=== PATIENT | female | born 1955 | race Caucasian/White ===

== ENCOUNTER 2017-06-27 22:03 | Emergency (ER) | payer OTHER ==
[~2017-06-27] VITALS: Ht 175.3 cm; Wt 101.2 kg
[2017-06-27 22:06] VITALS: TEMP 36.9; Ht 175.3 cm; Wt 101.2 kg
[2017-06-27] MEDS ORDERED: ONDANSETRON INJ 2 MG/ML 2 ML VIAL IV STA (22:34)
[2017-06-27] MEDS ORDERED: SODIUM CHLORIDE 0.9% 1000ML 1,000 ML, SODIUM CHLORIDE 0.9% 1000ML 1,000 ML IV ONE (22:45)
[2017-06-27] MEDS ORDERED: ASPI-390 PO (22:53)
[2017-06-27] MEDS ORDERED: MULT1PAK6 PO (22:53)
[2017-06-27 23:31] LABS: BASO % 0.3 %; BASO ABS # 0.05 K/uL (0-0.2); EOS % 0.3 %; EOS ABS # 0.05 K/uL (0-0.5); HEMATOCRIT 39.3 % (37-47); HEMOGLOBIN 13.1 g/dL (12.0-16.0); IG# 0.05 K/uL (0.00-0.02); LYMPH ABS # 1.23 K/uL (1.2-3.4); MEAN CELL VOLUME 91.6 fL (80-100); MEAN CORPUSCULAR HEMOGLOBIN 30.5 pg (25-34); MEAN CORPUSCULAR HGB CONC 33.3 g/dl (32-36); MEAN PLATELET VOLUME 10.9 fL (7.4-10.4); MONO ABS # 1.23 K/uL (0.11-0.59); NEUT % 85.1 %; NEUT ABS # 15.07 K/uL (1.4-6.5); PLATELET COUNT 277 K/uL (130-400); RED CELL DISTRIBUTION WIDTH CV 13.3 % (11.5-14.5); RED CELL DISTRIBUTION WIDTH SD 44.3 fL (36.4-46.3); WHITE BLOOD COUNT 17.68 K/uL (4.8-10.8)
[2017-06-27 23:52] LABS: ALBUMIN 3.7 gm/dl (3.4-5.0); CALCIUM 8.9 mg/dl (8.5-10.1); CREATININE 0.86 mg/dl (0.60-1.20); POTASSIUM 3.9 mmol/L (3.5-5.1); TOTAL PROTEIN 7.5 gm/dl (6.4-8.2)
[2017-06-28] MEDS ORDERED: PANTOprazole INJ 40 MG in SYRINGE 0 ML IV ONE (00:45)
[2017-06-28] MEDS ORDERED: ONDANSETRON HOME PACK 4MG OD TAB PO ONE (01:30)
[2017-06-28 01:56] VITALS: BP 148/94; PULSE 108; O2SAT 97
--- NOTE | 2017-06-28 07:14 | DIAGNOSTIC IMAGING REPORT ---
PA CHEST RADIOGRAPH AND UPRIGHT AND SUPINE AP RADIOGRAPHS OF THE ABDOMEN CLINICAL HISTORY: Nausea, vomiting and diarrhea. COMPARISON STUDY: No previous studies for comparison. FINDINGS: Lung volumes are normal. There is no consolidation or evidence for pulmonary edema. Mild cardiomegaly is noted. There is no free air. The bowel gas pattern is normal. IMPRESSION: 1. No free air or evidence of bowel obstruction. 2. No acute cardiopulmonary findings. Electronically signed by: Heath Martines M.D. 06/28/2017 7:13 AM Dictated Date/Time: 06/28/2017 7:12 AM
--- NOTE | 2017-06-28 22:01 | EMERGENCY ROOM VISIT NOTE ---
History First contact with patient: 22:13 Chief Complaint: DIARRHEA Stated Complaint: DIARREHA,VOMITING BLOOD Nursing Triage Summary: Ate dinner at the [employer], upon leaving had lower abdominal pain. Got back to hotel and had multiple episodes of diarrhea and vomiting, noticed matias blood in third emesis. History of Present Illness The patient is a 61 year old female who presents to the Emergency Room with complaints of nausea, vomiting, and diarrhea that began roughly 4 hours ago. The patient is visiting locally with friends and they went to eat at the house. The patient states that she had calamari, salmon, and Caesar salad. She began having abdominal cramping after eating, went back to her hotel, and had several episodes of diarrhea. She also states that she had 3 episodes of food emesis. The last bit of emesis did have blood in it. The patient has abdominal cramping that has been improving. Her nausea is resolved after the vomiting. No fever or chills. No recent antibiotic use. She rates her discomfort a 5/10. She denies abdominal surgery. Review of Systems More than 10 systems were reviewed and otherwise negative with the exception of history of present illness. Past Medical/Surgical History No pertinent chronic medical disease Family History No pertinent family history Social History Smoking Status: Never Smoker Occupation Status: employed Current/Historical Medications Scheduled Lbatvmi-Bfrbbkaasajqy-Wtozywmo (Excedrin Migraine), 2 TABS PO prn ud Multiple Vitamins W/ Minerals (Emergen-C Vitamin C), 1 DOSE PO PRN Physical Exam Vital Signs Date Time Temp Pulse Resp B/P (MAP) Pulse Ox O2 Delivery O2 Flow Rate FiO2 06/28/17 01:56 108 19 148/94 97 06/28/17 00:58 96 97 06/28/17 00:53 92 97 Room Air 06/28/17 00:38 94 18 97 06/28/17 00:31 139/86 06/28/17 00:23 91 97 06/28/17 00:08 91 96 06/28/17 00:03 92 98 06/28/17 00:01 153/92 06/27/17 23:48 95 98 06/27/17 23:18 92 97 06/27/17 23:03 96 97 Room Air 06/27/17 23:00 150/90 06/27/17 22:58 145/87 06/27/17 22:06 36.9 106 20 167/97 95 Room Air Physical Exam VITALS: Vitals are noted on the nurse's note and reviewed by myself. Vital signs stable. GENERAL: Well-developed, well-nourished, white female, who is in no acute distress and resting comfortably. Patient is cooperative with the examination. MOUTH: Mucous membranes moist. Tonsils are not enlarged. Pharynx without erythema, blood, or exudate. Uvula midline. Airway patent. NECK: Supple without nuchal rigidity. No lymphadenopathy. No thyromegaly. Cervical spine is nontender. HEART: Regular rate and rhythm without murmurs gallops or rubs. LUNGS: Clear to auscultation bilaterally without wheezes, rales or rhonchi. No retractions or accessory muscle use. ABDOMEN: Positive normal bowel sounds x 4. Soft, nontender, without masses or organomegaly. No guarding or rebound tenderness. Medical Decision & Procedures ER Provider Diagnostic Interpretation: PA CHEST RADIOGRAPH AND UPRIGHT AND SUPINE AP RADIOGRAPHS OF THE ABDOMEN CLINICAL HISTORY: Nausea, vomiting and diarrhea. COMPARISON STUDY: No previous studies for comparison. FINDINGS: Lung volumes are normal. There is no consolidation or evidence for pulmonary edema. Mild cardiomegaly is noted. There is no free air. The bowel gas pattern is normal. IMPRESSION: 1. No free air or evidence of bowel obstruction. 2. No acute cardiopulmonary findings. Laboratory Results 06/27/17 23:05 Red Blood Count 4.29, Mean Corpuscular Volume 91.6, Mean Corpuscular Hemoglobin 30.5, Mean Corpuscular Hemoglobin Concent 33.3, Mean Platelet Volume 10.9, Neutrophils (%) (Auto) 85.1, Lymphocytes (%) (Auto) 7.0, Monocytes (%) (Auto) 7.0, Eosinophils (%) (Auto) 0.3, Basophils (%) (Auto) 0.3, Neutrophils # (Auto) 15.07, Lymphocytes # (Auto) 1.23, Monocytes # (Auto) 1.23, Eosinophils # (Auto) 0.05, Basophils # (Auto) 0.05 06/27/17 23:05 Test 06/27/17 22:20 06/27/17 23:05 Urine Color YELLOW Urine Appearance CLEAR (CLEAR) Urine pH 5.0 (4.5-7.5) Urine Specific [place] 1.026 (1.000-1.030) Urine Protein NEG (NEG) Urine Glucose (UA) NEG (NEG) Urine Ketones NEG (NEG) Urine Occult Blood NEG (NEG) Urine Nitrite NEG (NEG) Urine Bilirubin NEG (NEG) Urine Urobilinogen NEG (NEG) Urine Leukocyte Esterase TRACE (NEG) Urine WBC (Auto) 5-10 /hpf (0-5) Urine RBC (Auto) 0-4 /hpf (0-4) Urine Hyaline Casts (Auto) 1-5 /lpf (0-5) Urine Epithelial Cells (Auto) 20-30 /lpf (0-5) Urine Bacteria (Auto) NEG (NEG) White Blood Count 17.68 K/uL (4.8-10.8) Red Blood Count 4.29 M/uL (4.2-5.4) Hemoglobin 13.1 g/dL (12.0-16.0) Hematocrit 39.3 % (37-47) Mean Corpuscular Volume 91.6 fL (80-100) Mean Corpuscular Hemoglobin 30.5 pg (25-34) Mean Corpuscular Hemoglobin Concent 33.3 g/dl (32-36) Platelet Count 277 K/uL (130-400) Mean Platelet Volume 10.9 fL (7.4-10.4) Neutrophils (%) (Auto) 85.1 % Lymphocytes (%) (Auto) 7.0 % Monocytes (%) (Auto) 7.0 % Eosinophils (%) (Auto) 0.3 % Basophils (%) (Auto) 0.3 % Neutrophils # (Auto) 15.07 K/uL (1.4-6.5) Lymphocytes # (Auto) 1.23 K/uL (1.2-3.4) Monocytes # (Auto) 1.23 K/uL (0.11-0.59) Eosinophils # (Auto) 0.05 K/uL (0-0.5) Basophils # (Auto) 0.05 K/uL (0-0.2) RDW Standard Deviation 44.3 fL (36.4-46.3) RDW Coefficient of Variation 13.3 % (11.5-14.5) Immature Granulocyte % (Auto) 0.3 % Immature Granulocyte # (Auto) 0.05 K/uL (0.00-0.02) Anion Gap 10.0 mmol/L (3-11) Est Creatinine Clear Calc Drug Dose 89.2 ml/min Estimated GFR () 85.7 Estimated GFR (Non- 73.9 BUN/Creatinine Ratio 23.1 (10-20) Calcium Level 8.9 mg/dl (8.5-10.1) Total Bilirubin 0.2 mg/dl (0.2-1) Aspartate Amino Transf (AST/SGOT) 36 U/L (15-37) Alanine Aminotransferase (ALT/SGPT) 34 U/L (12-78) Alkaline Phosphatase 110 U/L (45-117) Total Protein 7.5 gm/dl (6.4-8.2) Albumin 3.7 gm/dl (3.4-5.0) Globulin 3.8 gm/dl (2.5-4.0) Albumin/Globulin Ratio 1.0 (0.9-2) Lipase 127 U/L (73-393) Chemistry Specimen Hemolysis Date/Time Source Procedure Growth Status 06/27/17 22:50 Stool C.difficile Toxin B Gene (PCR) - Final No C. difficile toxin B gene detected Complete Medications Administered Medications (Trade) Dose Ordered Sig/Angela Route Start Time Stop Time Status Last Admin Dose Admin Sodium Chloride/ Sodium Chloride 2,000 ml @ 999 mls/hr Q2H1M ONCE IV 06/27/17 22:45 06/28/17 00:45 DC 06/27/17 23:11 999 MLS/HR Ondansetron HCl (Zofran Inj) 4 mg NOW STAT IV 06/27/17 22:34 06/27/17 22:36 DC 06/27/17 23:11 4 MG Pantoprazole Sodium 40 mg/ Syringe 10 ml @ 5 mls/min NOW ONCE IV 06/28/17 00:45 06/28/17 00:46 DC 06/28/17 00:54 5 MLS/MIN Ondansetron HCl (ZOFRAN ODT 4MG Home Pack) 1 homepack UD ONCE PO 06/28/17 01:30 06/28/17 01:31 DC 06/28/17 01:55 1 HOMEPACK ED Course Physical exam and history were performed. Nursing notes, EMR, and Medication List were personally reviewed. Patient appears to have nausea, vomiting, and diarrhea following dinner at a restaurant this evening. The patient does not appear toxic on examination. She is visiting from out of town. IV access was established and labs were obtained. The patient was hydrated and medicated as above. Plain films were performed. She was able to provide urine and stool samples. The patient's blood work is as above and was reviewed. She does have an elevated white blood cell count 17,000, this is felt to be related to her emesis just prior to arrival. She does not have significant anemia or gross electrolyte imbalance. Urinalysis obvious infection. Stool sample was gathered and C. difficile was negative. Cultures are pending. X-rays were reviewed by myself and radiology showing no acute process. Patient was monitored for several hours here in the emergency department. She did not have any return of her emesis. She did have a small amount of loose stool but no profound diarrhea. Reevaluation her abdomen continues to be soft. I discussed options of care with the patient, and she does feel well for discharge. I will ask her to take Zofran for the next day and practice soft food and liquid diet. I suspect her symptoms are related to a foodborne illness and should improve over the next 1-2 days. She is to follow with her primary care physician if symptoms persist or return to the ER if things worsen. The chart was completed utilizing [employer] Speech Voice Recognition Software. Grammatical errors, random word insertions, pronoun errors, and incomplete sentences are an occasional consequence of this system due to software limitations, ambient noise, and hardware issues. Any formal questions or concerns about the content, text, or information contained within the body of this dictation should be directly addressed to the provider for clarification. . Medical Decision Differential diagnosis: Etiologies such as gastroenteritis, food borne illness, infections, appendicitis , diverticulitis, inflammatory bowel disease, obstruction, GI bleed, biliary pathology, as well as others were entertained. Impression Primary Impression: Nausea vomiting and diarrhea Departure Information Dispostion Home / Self-Care Condition GOOD Forms HOME CARE DOCUMENTATION FORM, IMPORTANT VISIT INFORMATION Patient Instructions My [facility], ED Diet [place] Additional Instructions You were seen and evaluated today on an emergency basis only. This is not a substitute for, or an effort to provide, complete comprehensive medical care. It is not possible to recognize and treat all injuries or illnesses in a single emergency department visit. For this reason it is recommended that you followup with your primary care physician next week for recheck of your condition. Drink plenty of fluids and remain well-hydrated. Small sips are typically better tolerated over a long period of time. Zofran 4 mg ODT: Dissolve 1 tablet every 6 hrs as needed for nausea. You are welcome to return to the emergency department anytime with new, worsening, or concerning symptoms.
== END 2017-06-28 02:00 | disposition home or self-care (01) ==
LOC: C.EDB 22:05
DX: R11.2 Nausea with vomiting, unspecified (principal); R19.7 Diarrhea, unspecified; D72.829 Elevated white blood cell count, unspecified